=== PATIENT | male | born 1995 ===

== ENCOUNTER 2017-05-23 16:45 | Emergency (ER) | payer OTHER, MEDICAID ==
[2017-05-23 17:27] VITALS: BP 157/92; PULSE 119; RESP 16; TEMP 98.2; O2SAT 100
--- NOTE | 2017-05-23 18:27 | ED PDOC ---
HPI: General Adult Time Seen by Provider: 05/23/17 17:43 Chief Complaint (Nursing): Needle Stick Chief Complaint (Provider): Needle Stick History Per: Patient History/Exam Limitations: no limitations Onset/Duration Of Symptoms: Days (x1) Additional Complaint(s): Alphonso Alfred is a 22 year old male that presents to the ED for a lab workup after being stuck with a needle at work yesterday. Of Note: * Patient reports that the source patient has Hepatitis A. * Patient also received the first shot of Hepatitis A vaccine two weeks ago. Past Medical History Reviewed: Historical Data, Nursing Documentation, Vital Signs Vital Signs: Last Vital Signs Temp 98.2 F 05/23/17 17:23 Pulse 119 H 05/23/17 17:23 Resp 16 05/23/17 17:23 BP 157/92 H 05/23/17 17:23 Pulse Ox 100 05/23/17 19:01 - Medical History PMH: No Chronic Diseases - Family History Family History: States: Unknown Family Hx - Allergies Allergies/Adverse Reactions: Allergies Allergy/AdvReac Type Severity Reaction Status Date / Time No Known Allergies Allergy Verified 05/23/17 17:23 Review of Systems ROS Statement: Except As Marked, All Systems Reviewed And Found Negative Physical Exam - Reviewed Nursing Documentation Reviewed: Yes Vital Signs Reviewed: Yes - Physical Exam Appears: Positive for: Non-toxic, No Acute Distress Head Exam: Positive for: ATRAUMATIC, NORMOCEPHALIC Skin: Positive for: Normal Color, Warm Cardiovascular/Chest: Positive for: Regular Rate, Rhythm. Negative for: Murmur Respiratory: Positive for: Normal Breath Sounds. Negative for: Wheezing Neurologic/Psych: Positive for: Alert, Oriented. Negative for: Motor/Sensory Deficits - ECG O2 Sat by Pulse Oximetry: 100 (RA) Pulse Ox Interpretation: Normal Medical Decision Making Medical Decision Making: Impression: Needle Stick Injury Plan: * Offered patient Hepatitis Panel and LFTs, but he states that he would get these tests done in his office. * Called pharmacy to check if [facility] has Hepatitis A vaccine or Hepatitis A immunoglobulin, neither is available. * Patient advised to watch for symptoms and to follow up at clinic for postexposure prophylaxis. Stable for discharge home. Scribe Attestation: Documented by Zayra Barahona, acting as a scribe for Melba Jackson PA-C. Provider Scribe Attestation: All medical record entries made by the Scribe were at my direction and personally dictated by me. I have reviewed the chart and agree that the record accurately reflects my personal performance of the history, physical exam, medical decision making, and the department course for this patient. I have also personally directed, reviewed, and agree with the discharge instructions and disposition. Disposition - Clinical Impression Clinical Impression: Needle stick injury - Patient ED Disposition Is Patient to be Admitted: No Counseled Patient/Family Regarding: Diagnosis, Need For Followup, Rx Given - Disposition Referrals: [facility] [Outside] Disposition: Routine/Home Disposition Time: 18:50 Condition: GOOD Instructions: Postexposure Prophylaxis (ED)
== END 2017-05-23 19:11 | disposition home or self-care (01) ==
LOC: H.ER 16:45
DX: S61.432A Puncture wound without foreign body of left hand, initial encounter (principal); W46.0XXA Contact with hypodermic needle, initial encounter; Y92.238 Other place in hospital as the place of occurrence of the external cause